=== PATIENT | female | born 1955 | race Caucasian/White ===

== ENCOUNTER 2018-10-14 09:57 | Day surgery (SDC) | payer OTHER ==
[2018-10-14] MEDS ORDERED: FENTAnyl 50 MCG/ML VIAL (11:25)
[2018-10-14] MEDS ORDERED: MIDAZOLAM 1 MG/ML 2 ML INJ ×3 (11:25)
== END 2018-10-14 15:37 | disposition home or self-care (01) ==
LOC: GIL 09:57
DX: Z12.11 Encounter for screening for malignant neoplasm of colon (principal); D12.0 Benign neoplasm of cecum
CPT/HCPCS: 45380; 88305